=== PATIENT | male | born 1995 | race Caucasian/White ===

== ENCOUNTER 2017-04-26 01:07 | Emergency (ER) | payer SELFPAY ==
[~2017-04-26] VITALS: Ht 190.5 cm; Wt 88.0 kg
[2017-04-26] MEDS ORDERED: FAMOTIDINE 20 MG/2 ML ONE (01:56)
[2017-04-26] MEDS ORDERED: ONDANSETRON 2MG/ML, 2ML ONE (01:56)
[2017-04-26] MEDS ORDERED: MAALOX/HYOSCYAMINE/LIDOCAINE 45 ML BTL ONE (01:56)
[2017-04-26] MEDS ORDERED: SODIUM CHLORIDE FLUSH 10ML SYR IVF ONE (02:00)
[2017-04-26] MEDS ORDERED: ONDANSETRON 2MG/ML, 2ML IVPush ONE (02:00)
[2017-04-26] MEDS ORDERED: SODIUM CHLORIDE 0.9% 1,000ML IVBOLUS ONE (02:00)
[2017-04-26] MEDS ORDERED: FAMOTIDINE 20 MG/2 ML IVP ONE (02:00)
[2017-04-26] MEDS ORDERED: MAALOX/HYOSCYAMINE/LIDOCAINE 45 ML BTL PO ONE (02:00)
[2017-04-26 03:02] VITALS: BP 119/46
== END 2017-04-26 03:28 | disposition home or self-care (01) ==
LOC: ED 01:52
DX: R11.2 Nausea with vomiting, unspecified (principal); R19.7 Diarrhea, unspecified
CPT/HCPCS: 96361; 96374; 96375; 99284; J2405; J7030; S0028